=== PATIENT | female | born 1935 | race Caucasian/White ===

== ENCOUNTER 2016-05-02 14:43 | Emergency (ER) | payer MEDICARE, BC ==
[2015-11-10 07:19] VITALS: BMI 24.3
[~2016-05-02 14:43] MED LIST: BENADRYL50 MG PO; FLUTICASONE PRO16 GM NASAL; HYDROCODONE-APA1 TAB PO; LEVOTHYROXINE100 MCG PO; TRAZODONE HCL50 MG PO; TYLENOL W/CODEI1 TAB PO; VOLTAREN100 GM TOPICAL
[2016-05-02 15:41] LABS: BASOPHILS 0.5 % (0.0-2.0); EOSINOPHILS 1.7 % (0-7); HEMATOCRIT 33.2 % (36.0-48.0); HEMOGLOBIN 10.9 g/dL (12-16); IMMATURE GRANULOCYTES 0.2 % (0-5); LYMPHOCYTES 28.2 % (15-50); MCH 29.4 pg (26.0-34.0); MCHC 32.8 g/dL (31.0-37.0); MCV 89.5 fL (80.0-100.0); MEAN PLATELET VOLUME 9.3 fL (7.4-10.4); MONOCYTES 10.7 % (2-11); NEUTROPHILS 58.7 % (40-80); PLATELET COUNT 302 10x3/uL (130-400); RBC 3.71 10x6/uL (4.00-5.40); RDW 12.6 % (11.5-14.5); WBC 6.6 10x3/uL (4.8-10.8)
[2016-05-02 16:19] LABS: CALC OSMOLALITY 271 mosm/kg (275-300); CALCIUM 8.5 mg/dL (8.5-10.1); CARBON DIOXIDE 26.1 mmol/L (21.0-32.0); CHLORIDE - SERUM 103 mmol/L (98-107); CREATINE KINASE 161 UL (21-215); CREATININE - SERUM 0.7 mg/dL (0.6-1.3); GLUCOSE 81 mg/dL (74-106); POTASSIUM - SERUM 4.4 mmol/L (3.5-5.1); SODIUM 137 mmol/L (136-145); UREA NITROGEN 10 mg/dL (7-18); eGFR NON AFRICAN AMERICAN 86 mL/min (90-120)
[2016-05-02 16:20] LABS: TROPONIN-I < 0.017 ng/mL (0.000-0.060)
== END 2016-05-02 18:54 | disposition home or self-care (01) ==
LOC: D.ER 14:43
PROVIDERS: Nurse Practitioner Acute Care
DX: M54.12 Radiculopathy, cervical region (principal); I10 Essential (primary) hypertension; E03.9 Hypothyroidism, unspecified

== ENCOUNTER → 2018-03-12 09:33 | Outpatient (CLI) | payer MEDICARE, BC ==
[2015-11-10 07:19] VITALS: BMI 24.3
== END | disposition home or self-care (01) ==
LOC: D.HCCARDIO 03-06 12:30
DX: I20.9 Angina pectoris, unspecified (principal); R06.02 Shortness of breath

== ENCOUNTER 2018-03-27 06:25 | Outpatient (CLI) | payer MEDICARE, BC ==
[~2018-03-27] VITALS: Ht 160 cm; Wt 57.3 kg
--- NOTE | ~2018-03-27 | HEMODYNAMI ---
PATIENT:SEEMA BURGER MEDICAL RECORD: [id number] : 39 LOCATION:[facility] ADMISSION DATE: 03/27/18 Generatedon:03/27/20189:15 Patient name: SEEMA BURGER Patient #: [id number] SSN: : 1935 Date of study: 03/27/2018 Page: Of Hemodynamic Procedure Report Patient Data Patient Demographics Procedure consent was obtained First Name: SEEMA Gender: Female Last Name: TAO : 1935 Middle Initial: C Age: 82 year(s) Patient #: [id number] Race: Unknown Additional ID: [id number] Contact details Address: [place] [address] State: [place] City: [place] Zip code: [address] Past Medical History Allergies Allergen Reaction Date Comments Reported Other allergy 03/27/2018 SULFA, TRAMADOL Admission Admission Data Admission Date: 03/27/2018 Admission Time: 6:25 Procedure Procedure Types Cath Procedure Diagnostic Procedure LHC LHC w/Coronaries Peripheral Cath Diagnostic Procedure 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 Peripheral Procedures Kteks-Ylsdvis-Jdk-Off Procedure Description Procedure Date Procedure Date: 03/27/2018 Procedure Start Time: 9:00 Procedure End Time: 9:12 Procedure Staff Name Function Paul Leggett MD Performing Physician Zohreh Fox RT Monitor Jeanette Howard RT Scrub Brenton Troy RN Nurse Artur Paredes RT Patient Admitting Clerk Procedure Data Cath Procedure Fluoroscopy Diagnostic fluoroscopy Total fluoroscopy Time: 1.7 time: 1.7 min min Diagnostic fluoroscopy Total fluoroscopy dose: 334 dose: 334 mGy mGy Contrast Material Contrast Material Type Amount (ml) Isovue 300 100 Entry Location Entry Primary Successful Side Size Upsize Upsize Entry Closure Succes sful Closure Location (Fr) 1 (Fr) 2 (Fr) Remarks Device Remarks Femoral Right 5 Fr Exoseal artery Estimated blood loss: 5 ml Diagnostic catheters Device Type Used For End Catheter Placement MULTIPACK JL 4.0 5Fr Left Coronary catheter Angiography MULTIPACK 3DRC 5Fr Right Coronary catheter Angiography MULTIPACK Pigtail 5 Fr LV Angiography catheter Procedure Complications No complications Procedure Medications Medication Administration Route Dosage Oxygen etCO2 Nasal cannula 2 l/min Lidocaine 2% added to field 20 Heparin Flush Bag added to field 2 bags (1000units/500ml NS) 0.9% NaCl I.V. 100 ml/hr Versed I.V. 1 mg Fentanyl I.V. 50 mcg Versed I.V. 1 mg Fentanyl I.V. 50 mcg Versed I.V. 0.5 mg Fentanyl I.V. 25 mcg Hemodynamics Rest Heart Rate: 73 (bpm) Pressure Samples Time Site Value (mmHg) Purpose Heart Use Rate(bpm) 9:06 LV 116/-13,8 Snapshot 82 9:07 AO 105/52(77) Pullback 90 9:07 LV 95/-6,8 Pullback 90 Gradients Valve Time Site 1 Site 2 Mean SEP/DFP Peak To Heart Use (mmHg) (sec/min) Peak Rate (mmHg) (bpm) Aortic 9:07 LV AO 0 7 0 90 95/-6,8 105/52(77) Calculations Valve P-P Mean Valve Index Valve Source Name Gradient Area Flow (cm2) Aortic 0 0 0 0 Snapshots Pre Cath Intra NCS Post Cath Vital Signs Time Heart Resp SPO2 etCO2 NIBP (mmHg) Rhythm Pain Sedation Rate (ipm) (%) (mmHg) Status Level (bpm) 8:43:58 70 12 100 29 143/73(124) NSR 0 (11) 10(A) , No pain 8:48:10 74 11 100 33.4 128/72(112) NSR 0 (11) 10(A) , No pain 8:52:16 81 12 98 30 125/73(101) NSR 0 (11) 10(A) , No pain 8:56:24 77 13 98 0 111/67(101) NSR 0 (11) 10(A) , No pain 9:00:25 71 15 95 0 118/69(84) NSR 0 (11) 10(A) , No pain 9:04:33 80 13 93 0 115/61(94) NSR 0 (11) 9(A) , No pain 9:08:39 85 12 95 0 112/64(91) NSR 0 (11) 9(A) , No pain 9:12:41 78 13 98 20.8 125/69(101) NSR 0 (11) 10(A) , No pain Medications Time Medication Route Dose Verified Delivered Reason Notes Effe ctiveness by by 8:49:44 Oxygen etCO2 2 Buffie Buffie used for Nasal l/min Sydni Troy RN procedure cannula 8:49:51 Lidocaine 2% added 20ml Buffie Paul for local to vial Sydni Leggett MD anesthetic field 8:49:57 Heparin Flush added 2 Buffie Paul used for Bag to bags Sydni Leggett MD procedure (1000units/500ml field NS) 8:50:06 0.9% NaCl I.V. 100 Buffie Buffie Per ml/hr Sydni Troy RN physician 8:52:05 Versed I.V. 1 mg Buffie Buffie for Sydni Troy RN sedation 8:52:11 Fentanyl I.V. 50 Buffie Buffie for mcg Sydni RN Sydni RN sedation 9:01:49 Versed I.V. 1 mg Buffie Buffie for Sydni RN Sydni RN sedation 9:01:53 Fentanyl I.V. 50 Buffie Buffie for mcg Sydni RN Sydni RN sedation 9:07:11 Versed I.V. 0.5 Buffie Buffie for mg Sydni RN Sydni RN sedation 9:07:15 Fentanyl I.V. 25 Buffie Buffie for mcg Sydni RN Sydni RN sedation Procedure Log Time Note 8:11:55 Signed procedure consent form obtained from patient. 8:11:56 Diagnostic Cath status Elective 8:12:01 Time tracking: Regular hours (M-F 7:00 - 5:00) 8:12:05 Plan of Care:Hemodynamics will remain stable., Cardiac rhythm will remain stable., Comfort level will be maintained., Respiratory function will remain adequate., Patient/ family verbilizes understanding of procedure., Procedure tolerated without complication., Recovers from procedure without complications.. 8:16:15 Patient allergic to Other allergySULFA, TRAMADOL 8:26:55 Artur Paredes RT(R) sent for patient. Start room use. 8:34:03 Patient received from Pre/Post Procedure Room to CCL 2 Alert and oriented. Tansferred to table in Supine position. 8:34:04 Warm blankets applied, and genesis hugger turned on for patient comfort. 8:34:04 Correct patient and procedure confirmed by team. 8:34:05 ECG and BP/O2 sat monitors applied to patient. 8:42:46 Vital chart was started 8:42:47 Baseline sample Acquired. 8:42:52 Rhythm: sinus rhythm 8:42:54 Full Disclosure recording started 8:44:43 H&P Date Dictated: 03/27/2018 Within 30 days and on chart., H&P Addendum completed by physician on day of procedure. (MUST COMPLETE FOR ALL OUTPATIENTS). 8:44:48 Pre-procedure instructions explained to patient. 8:44:48 Pre-op teaching completed and patient verbalized understanding. 8:44:50 Family in patients room. 8:44:52 Patient NPO since Midnight. 8:44:53 Is the patient allergic to Iodine/contrast media? No. 8:44:54 Was the patient premedicated? No 8:44:55 Is patient on blood thinner?No 8:44:56 Patient diabetic? No. 8:44:59 Previous problem with sedation/anesthesia? No ? 8:45:01 Snore? Yes 8:45:02 Sleep apnea? Yes 8:45:03 Deviated septum? No 8:45:03 Opens mouth fully? Yes 8:45:04 Sticks out tongue? Yes 8:45:05 Airway obstruction? No ? 8:45:08 Dentures? No ? 8:45:11 Pre procedure: right dorsailis pedis pulse 1+ Palpable, but thready & weak; easily obliterated 8:45:24 Patient pain scale 0/10 ?. 8:45:34 IV patent on arrival in left forearm with 0.9% NaCl at KVO. 8:45:37 Lab results completed and on chart. 8:45:44 Bilateral groins area was prepped with chlora-prep and draped in sterile fashion 8:45:45 Alarms reviewed by R. N. 8:45:45 Sharps counted by scrub and verified by R.N. 8:45:48 Physician arrived 8:45:48 --------ALL STOP TIME OUT------ 8:45:49 Final Timeout: patient, procedure, and site verified with staff and physician. All members of the team are in agreement. 8:45:51 Bilateral groins site verified by team. 8:45:54 Physical assessment completed. ASA score P 2 - A patient with mild systemic disease as per Paul Leggett MD. 8:45:57 Sedation plan: IV Moderate Sedation Medication:Versed, Fentanyl 8:46:00 Use device set Femoral Dx 8:46:01 ACIST Syringe (11784) opened to sterile field. 8:46:02 Bag Decanter (2002S) opened to sterile field. 8:46:02 Medline Cath Pack ([id number]) opened to sterile field. 8:46:03 DIAGNOSTIC WIRE .035 260cm J wire (246655) opened to sterile field. 8:46:04 ACIST Hand Control (74217) opened to sterile field. 8:46:04 ACIST Manifold (15628) opened to sterile field. 8:46:05 DIAGNOSTIC Multipack 5Fr catheter set ([id number]) opened to sterile field. 8:46:05 Tegaderm 4 x 4 (1626W) opened to sterile field. 8:46:06 SHEATH 5FR [place] (IJB995) opened to sterile field. 8:47:56 Zero performed for pressure channel P1 8:48:01 Zero performed for pressure channel P1 8:48:06 Zero performed for pressure channel P1 8:49:44 Oxygen 2 l/min etCO2 Nasal cannula was administered by Brenton Troy RN; used for procedure; 8:49:51 Lidocaine 2% 20ml vial added to field was administered by Paul Leggett MD; for local anesthetic; 8:49:57 Heparin Flush Bag (1000units/500ml NS) 2 bags added to field was administered by Paul Leggett MD; used for procedure; 8:50:06 0.9% NaCl 100 ml/hr I.V. was administered by Brenton Troy RN; Per physician; 8:52:05 Versed 1 mg I.V. was administered by Brenton Troy RN; for sedation; 8:52:11 Fentanyl 50 mcg I.V. was administered by Brenton Troy RN; for sedation; 9:00:33 Procedure started. 9:00:37 Local anesthetic to right femoral artery with Lidocaine 2% by Paul Leggett MD.INITIAL ACCESS ONLY 9:01:44 A 5 Fr sheath was inserted into the Right Femoral artery 9:01:49 Versed 1 mg I.V. was administered by Brenton Troy RN; for sedation; 9:01:53 Fentanyl 50 mcg I.V. was administered by Brenton Troy RN; for sedation; 9:02:11 A MULTIPACK JL 4.0 5Fr catheter was advanced over the wire and used for Left Coronary Angiography. 9:02:29 LCA angiography performed. 9::52 Injector settings: Ml/sec: 3, Volume: 6, 9:04:02 Catheter removed. 9:04:06 A MULTIPACK 3DRC 5Fr catheter was advanced over the wire and used for Right Coronary Angiography. 9:05:08 RCA angiography performed. 9:05:11 Injector settings: Ml/sec: 3, Volume: 6, 9:05:42 Catheter removed. 9:05:47 A MULTIPACK Pigtail 5 Fr catheter was advanced over the wire and used for LV Angiography. 9:06:56 LV hemodynamics recorded. 9::58 LV gram done using ANDERS 9:07:01 Injector settings: Ml/sec: 5, Volume: 15, 9:07:11 Versed 0.5 mg I.V. was administered by Brenton Troy RN; for sedation; 9:07:15 Fentanyl 25 mcg I.V. was administered by Brenton Troy RN; for sedation; 9:07:36 EF : 60 % 9:09:02 Abdominal angiogram w/ runoff was performed. 9::29 Injector settings: Ml/sec: 10, Volume: 20, 9:10:38 Catheter removed. 9:10:51 EXOSEAL 5Fr (EX500) opened to sterile field. 9:11:01 Sheath removed intact; hemostasis achieved with Exoseal to the Right Femoral artery. 9:11:05 Procedure ended.(Physican Out) 9:11:27 Fluoroscopy time 01.70 minutes. 9:11:30 Fluoroscopy dose: 334 mGy 9:11:30 Flurop Dose total: 334 9:11:35 Contrast amount:Isovue 300 100ml. 9:11:37 Sharps counted by scrub and verified by R.N. 9:11:38 Insertion/operative site no bleeding no hematoma. 9:11:40 Post-op/insertion site Right Femoral artery dressed using a 4 x 4 and Tegaderm. 9:11:43 Post right femoral artery:stable 9:11:44 Post Procedure Pulses reassessed and unchanged 9:11:47 Post procedure rhythm: unchanged. 9:11:50 Estimated blood loss: 5 ml 9:11:51 Post procedure instruction explained to patient.Patient verbalizes understanding. 9:11:51 Patient needs reinforcement of post procedure teaching. 9:12:04 Procedure and supply charges have been captured, reviewed, submitted and are correct. 9:12:08 Procedure Complication : No complications 9:12:10 Vital chart was stopped 9:12:11 See physician's report for complete and final results. 9:12:13 Report given to Pre/Post Procedure Room. 9:12:16 Patient transfered to Pre/Post Procedure Room with Stretcher. 9:12:18 Procedure ended. 9:12:18 Full Disclosure recording stopped 9:12:24 End room use (Document Last) Device Usage Item Name Manufacture Quantity Catalog Hospital Part Current Minimal L ot# / Number Charge Number Stock Stock Serial# Code ACIST Acist 1 06344 476970 258925 050321 20 Syringe Medical (30871) Systems Inc Bag Microtek 1 2001S 240950 14353 331769 5 Decanter Medical Inc. () Medline Medline 1 [id number] 232619 20037 836310 5 Cath Pack ([id number]) DIAGNOSTIC [facility] [place] 1 134018 050911 581107 185562 30 WIRE .035 260cm J wire (662881) ACIST Hand Acist 1 38273 166215 775340 687907 5 Control Medical (66093) Systems Inc ACIST Acist 1 25494 788477 485810 066063 5 Manifold Medical (12088) Systems Inc DIAGNOSTIC Cardinal 1 [id number] 538082 36679 385631 30 Multipack Health 5Fr catheter set (OD6077) Tegaderm 4 3M 1 1626W 495031 068051 901206 5 x 4 (1626W) SHEATH 5FR Terumo 1 [id number] 843880 769847 275326 5 [place] (SVR787) MULTIPACK Cardinal 1 316893 5 JL 4.0 5Fr Health catheter MULTIPACK Cardinal 1 818154 5 3DRC 5Fr Health catheter MULTIPACK Cardinal 1 731304 5 Pigtail 5 Health Fr catheter EXOSEAL 5Fr Cardinal 1 EX500 898585 956593 181907 10 (EX500) Health Signature Audit [place] Stage Time Signature Unsigned Intra-Procedure 03/27/2018 Zohreh Fox 9:15:14 AM RT(R) Signatures Monitor : Zohreh Fox RT Signature : Date : Time : [address] [place] [address]
[2018-03-27] MEDS ORDERED: NORVASC5 MG PO (06:51)
[2018-03-27 06:57] VITALS: BP 164/75; Ht 160 cm; Wt 57.3 kg
[2018-03-27 07:14] LABS: BASOPHILS 0.4 % (0-2); EOSINOPHILS 2.9 % (0-7); HEMATOCRIT 29.7 % (36.0-48.0); HEMOGLOBIN 9.5 g/dL (12-16); IMMATURE GRANULOCYTES 0.2 % (0-5); LYMPHOCYTES 35.1 % (15-50); MCH 26.5 pg (26.0-34.0); MCV 82.7 fL (80.0-100.0); MEAN PLATELET VOLUME 8.7 fL (7.4-10.4); MONOCYTES 13.9 % (2-11); NEUTROPHILS 47.5 % (40-80); PLATELET COUNT 305 10x3/uL (130-400); RBC 3.59 10x6/uL (4.00-5.40); RDW 14.6 % (11.5-14.5); WBC 4.5 10x3/uL (4.8-10.8)
[2018-03-27 07:41] LABS: ANION GAP 16.4 mmol/L (8-16); CALCIUM 8.6 mg/dL (8.5-10.1); CARBON DIOXIDE 21.1 mmol/L (21.0-32.0); CREATININE - SERUM 0.8 mg/dL (0.6-1.3); POTASSIUM - SERUM 3.5 mmol/L (3.5-5.1)
--- NOTE | 2018-03-27 09:35 | NUR ---
RIGHT GROIN DRESSING C/D/I. NO S/S OF HEMATOMA NOTED. PT ON BEDPAN. VOIDED APPROX 700CC OF CLEAR YELLOW URINE WITHOUT DIFFICULTY. ARELIS-CARE GIVEN AND PT BACK IN SUPINE POSITION. CALL LIGHT WITHIN REACH. FAMILY AT BEDSIDE.
--- NOTE | 2018-03-27 10:20 | NUR ---
RIGHT GROIN DRESSING C/D/I. NO S/S OF HEMATOMA NOTED. VSS. HEAD OF BED INC TO 30 DEGREES. TOLERATED WELL. SET UP WITH SANDWICH TRAY.
--- NOTE | 2018-03-27 10:45 | NUR ---
PT TOLERATED SANDWICH TRAY WELL. DENIES NAUSEA. VSS. RIGHT GROIN DRESSING C/D/I.
--- NOTE | 2018-03-27 11:11 | NUR ---
LEFT A/C PIV D/C'D WITH CATH TIP INTACT. PT TOLERATED WELL. PT INSTRUCTED TO GET UP AND GET DRESSED. WAITING TO SPEAK WITH DR. GIVENS PRIOR TO DISCHARGE HOME.
--- NOTE | 2018-03-27 11:30 | NUR ---
DISCUSSED DISCHARGE INSTRUCTIONS WITH PT AND PT'S FAMILY. THEY VOICED UNDERSTANDING. RIGHT GROIN DRESSING C/D/I. NO S/S OF HEMATOMA NOTED. ALL BELONGINGS AND PAPERWORK IN HAND. PT TAKEN OUT BY VEHICLE. NO S/S OF DISTRESS NOTED.
== END 2018-03-27 11:30 | disposition home or self-care (01) ==
LOC: D.CATH 06:25
PROVIDERS: Internal Medicine Cardiovascular Disease
DX: I25.119 Atherosclerotic heart disease of native coronary artery with unspecified angina pectoris (principal); M79.606 Pain in leg, unspecified; R94.39 Abnormal result of other cardiovascular function study; I10 Essential (primary) hypertension; M19.90 Unspecified osteoarthritis, unspecified site; Z82.49 Family history of ischemic heart disease and other diseases of the circulatory system; E07.9 Disorder of thyroid, unspecified; Z79.891 Long term (current) use of opiate analgesic; Z79.899 Other long term (current) drug therapy; Z88.5 Allergy status to narcotic agent; Z88.2 Allergy status to sulfonamides; Z01.812 Encounter for preprocedural laboratory examination

== ENCOUNTER 2018-04-14 11:23 | Outpatient (CLI) | payer MEDICARE, BC ==
[~2018-04-14] VITALS: Ht 160 cm; Wt 56.8 kg
--- NOTE | ~2018-04-14 | HEMODYNAMI ---
PATIENT:SEEMA BURGER MEDICAL RECORD: [id number] : 39 LOCATION:[facility] ADMISSION DATE: 04/14/18 Generatedon:04/14/201814:31 Patient name: SEEMA BURGER Patient #: [id number] SSN: : 1935 Date of study: 04/14/2018 Page: Of Hemodynamic Procedure Report Patient Data Patient Demographics Procedure consent was obtained First Name: SEEMA Gender: Female Last Name: TAO : 1935 Middle Initial: C Age: 82 year(s) Patient #: [id number] Race: Unknown Additional ID: [id number] Contact details Address: [place] [address] State: [place] City: [place] Zip code: [address] Past Medical History Allergies Allergen Reaction Date Comments Reported Other allergy 03/27/2018 SULFA, TRAMADOL Other allergy 04/14/2018 Tramadol, Sulfa Admission Admission Data Admission Date: 04/14/2018 Admission Time: 11:23 Procedure Procedure Types Cath Procedure Diagnostic Procedure Sedation Charges Moderate Sedation up to 15 minutes PCI Procedure Coronary Stent Coronary Stent Initial Procedure Description Procedure Date Procedure Date: 04/14/2018 Procedure Start Time: 14:10 Procedure End Time: 14:29 Procedure Staff Name Function Paul Leggett MD Performing Physician Kumar Houser RT Monitor Jacquelin Braxton RN Nurse Beth Harvey RT Scrub Dalton Marquez RN Senior Materials Scientist Procedure Data Cath Procedure Fluoroscopy Diagnostic fluoroscopy Total fluoroscopy Time: 4.1 time: 4.1 min min Diagnostic fluoroscopy Total fluoroscopy dose: 237 dose: 237 mGy mGy Contrast Material Contrast Material Type Amount (ml) Isovue 300 47 Entry Location Entry Primary Successful Side Size Upsize Upsize Entry Closure [place] ccessful Closure Location (Fr) 1 (Fr) 2 (Fr) Remarks Device Remarks Radial Right 6 Fr Mechanical artery Short Compression Estimated blood loss: 10 ml Procedure Complications No complications Procedure Medications Medication Administration Route Dosage 0.9% NaCl I.V. 100 ml/hr Oxygen etCO2 Nasal cannula 2 l/min Lidocaine 2% added to field 20 Heparin Flush Bag added to field 2 bags (1000units/500ml NS) Radial Cocktail added to field 1 syringe (Verapomil 2mg/Nitro 400mcg/Heparin 1500units) Versed I.V. 2 mg Fentanyl I.V. 50 mcg Versed I.V. 2 mg Fentanyl I.V. 50 mcg Heparin Bolus I.V. 5000 units Plavix P.O. 600 mg Hemodynamics Rest Heart Rate: 67 (bpm) Snapshots Pre Cath Intra NCS Post Cath Vital Signs Time Heart Resp SPO2 etCO2 NIBP (mmHg) Rhythm Pain Sedation Rate (ipm) (%) (mmHg) Status Level (bpm) 13:53:47 73 16 99 31.4 148/76(115) NSR 0 (11) 10(A) , No pain 13:58:08 71 15 100 31.3 155/77(122) NSR 0 (11) 10(A) , No pain 14:02:28 71 10 98 26.4 129/71(108) NSR 0 (11) 10(A) , No pain 14:06:42 70 12 98 31.3 118/72(99) NSR 0 (11) 10(A) , No pain 14:10:56 73 13 97 32.1 86/51(68) NSR 0 (11) 10(A) , No pain 14:14:57 79 14 98 27.6 87/56(77) NSR 0 (11) 9(A) , No pain 14:18:59 80 16 98 21.6 98/56(77) NSR 0 (11) 9(A) , No pain 14:23:05 80 9 97 23.9 99/59(80) NSR 0 (11) 10(A) , No pain 14:27:11 77 9 96 29.8 107/58(89) NSR 0 (11) 10(A) , No pain Medications Time Medication Route Dose Verified Delivered Reason Not es Effectiveness by by 13:54:17 0.9% NaCl I.V. 100 Paul Jacquelin used for ml/hr Oleksandr Braxton tablet tester 13:54:24 Oxygen etCO2 2 l/min Paul Jacquelin used for Nasal Oleksandr Braxton procedure cannula RN 13:54:31 Lidocaine 2% added 20ml Paul Paul for local to vial Oleksandr Leggett MD anesthetic field 13:54:36 Heparin Flush added 2 bags Paul Paul used for Bag to Oleksandr Leggett MD procedure (1000units/500ml field NS) 13:54:41 Radial Cocktail added 1 Paul Paul used for (Verapomil to syringe Oleksandr Leggett MD procedure 2mg/Nitro field 400mcg/Heparin 1500units) 14:06:39 Versed I.V. 2 mg Paul Jacquelin for sedation Oleksandr Braxton RN 14:06:52 Fentanyl I.V. 50 mcg Paul Jacquelin for sedation Oleksandr Braxton RN 14:11:12 Versed I.V. 2 mg Paul Jacquelin for sedation Oleksandr Braxton RN 14:11:16 Fentanyl I.V. 50 mcg Paul Jacquelin for sedation Oleksandr Braxton RN 14:12:20 Heparin Bolus I.V. 5000 Paul Jacquelin for jimena ified units Oleksandr Braxton anticoagulation with Dr. WALT Leggett 14:22:22 Plavix P.O. 600 mg Paul Jacquelin for Oleksandr Braxton antiplatelet RN therapy Procedure Log Time Note 13:39:30 Time tracking: Regular hours (M-F 7:00 - 5:00) 13:39:33 Plan of Care:Hemodynamics will remain stable., Cardiac rhythm will remain stable., Comfort level will be maintained., Respiratory function will remain adequate., Patient/ family verbilizes understanding of procedure., Procedure tolerated without complication., Recovers from procedure without complications.. 13:39:36 Dalton Maqruez RN sent for patient. Start room use. 13:48:02 Patient received from Pre/Post Procedure Room to CCL 1 Alert and oriented. Tansferred to table in Supine position. 13:48:03 Warm blankets applied, and genesis hugger turned on for patient comfort. 13:48:03 Correct patient and procedure confirmed by team. 13:48:05 Signed procedure consent form obtained from patient. 13:48:06 ECG and BP/O2 sat monitors applied to patient. 13:48:22 H&P Date Dictated: 03/27/2019 Within 30 days and on chart., H&P Addendum completed by physician on day of procedure. (MUST COMPLETE FOR ALL OUTPATIENTS). 13:48:24 Pre-procedure instructions explained to patient. 13:48:25 Pre-op teaching completed and patient verbalized understanding. 13:48:26 Family in waiting room. 13:48:27 Patient NPO since Midnight. 13:48:30 Previous problem with sedation/anesthesia? No ? 13:48:30 Snore? Yes 13:48:31 Sleep apnea? Yes 13:48:32 Deviated septum? No 13:48:33 Opens mouth fully? Yes 13:48:33 Sticks out tongue? Yes 13:48:35 Airway obstruction? No ? 13:48:40 Dentures? No ? 13:48:42 Pre procedure: right dorsailis pedis pulse 2+ Normal; easily identifiable; not easily obliterated 13:48:44 Patient pain scale 0/10 ?. 13:48:45 Modified Leroy's test Ulnar < 7 seconds 13:48:50 IV patent on arrival in left wrist with 0.9% NaCl at [facility]. 13:48:52 Lab results completed and on chart. 13:52:37 Vital chart was started 13:54:17 0.9% NaCl 100 ml/hr I.V. was administered by Jacquelin Braxton RN; used for procedure; 13:54:24 Oxygen 2 l/min etCO2 Nasal cannula was administered by Jacquelin Braxton RN; used for procedure; 13:54:31 Lidocaine 2% 20ml vial added to field was administered by Paul Leggett MD; for local anesthetic; 13:54:36 Heparin Flush Bag (1000units/500ml NS) 2 bags added to field was administered by Paul Leggett MD; used for procedure; 13:54:41 Radial Cocktail (Verapomil 2mg/Nitro 400mcg/Heparin 1500units) 1 syringe added to field was administered by Paul Leggett MD; used for procedure; 14:04:49 Baseline sample Acquired. 14:04:52 Rhythm: sinus rhythm 14:04:54 Full Disclosure recording started 14:05:22 Patient allergic to Other allergyTramadol, Sulfa 14:05:26 Is the patient allergic to Iodine/contrast media? No. 14:05:27 Is patient on blood thinner?No 14:05:28 Patient diabetic? No. 14:05:37 Right Radial & Right Groin area was prepped with chlora-prep and draped in sterile fashion 14:05:38 Alarms reviewed by Danyel N. 14:05:39 Sharps counted by scrub and verified by R.N. 14:05:42 Use device set Radial Dx or PCI 14:05:43 ACIST Syringe (03460) opened to sterile field. 14:05:43 Medline Cath Pack ([id number]) opened to sterile field. 14:05:44 Bag Decanter (2002S) opened to sterile field. 14:05:44 ACIST Manifold (97975) opened to sterile field. 14:05:45 ACIST Hand Control (76703) opened to sterile field. 14:05:45 Tegaderm 4 x 4 (1626W) opened to sterile field. 14:05:46 MBrace Wrist Support ([id number]) opened to sterile field. 14:05:47 SHEATH 6FR Slender (50-5150) opened to sterile field. 14:05:47 DIAGNOSTIC WIRE .035 260cm J wire (167501) opened to sterile field. 14:05:53 Physician arrived 14:05:53 --------ALL STOP TIME OUT------ 14:05:53 Final Timeout: patient, procedure, and site verified with staff and physician. All members of the team are in agreement. 14:05:56 Right Radial & Right Groin site verified by team. 14:05:58 Physical assessment completed. ASA score P 2 - A patient with mild systemic disease as per Paul Leggett MD. 14:06:02 Sedation plan: IV Moderate Sedation Medication:Versed, Fentanyl 14:06:39 Versed 2 mg I.V. was administered by Jacquelin Braxton RN; for sedation; 14:06:52 Fentanyl 50 mcg I.V. was administered by Jacquelin Braxton RN; for sedation; 14:09:59 Procedure started. 14:10:04 Local anesthetic to right radial artery with Lidocaine 2% by Paul Leggett MD.INITIAL ACCESS ONLY 14:10:11 A 6 Fr Short sheath was inserted into the Right Radial artery 14:10:31 Zero performed for pressure channel P1 14:10:35 Zero performed for pressure channel P1 14:10:37 Zero performed for pressure channel P1 14:10:40 Zero performed for pressure channel P1 14:10:52 NEEDLE Cook 21G 4cm Radial (T67815) opened to sterile field. 14:11:06 Zero performed for pressure channel P1 14:11:12 Versed 2 mg I.V. was administered by Jacquelin Braxton RN; for sedation; 14:11:12 Zero performed for pressure channel P1 14:11:16 Fentanyl 50 mcg I.V. was administered by Jacquelin Braxton RN; for sedation; 14:11:33 Zero performed for pressure channel P1 14:11:47 GUIDE 6FR XBLAD 3.5 catheter ([id number]) opened to sterile field. 14:12:02 6 Fr XBLAD 3.5 guide catheter was inserted over the wire 14:12:20 Heparin Bolus 5000 units I.V. was administered by Jacquelin Braxton RN; for anticoagulation; verified with Dr. Leggett 14:12:22 TUBING High Pressure Extension Tubing (Oleksandr) (TC8858L) opened to sterile field. 14:12:23 INFLATOR Merit BasixCompak (IC3846) opened to sterile field. 14:12:24 BMW 300cm [place] 2 J wire ([id number]) opened to sterile field. 14:12:28 TR BAND Standard (TSX84TYG) opened to sterile field. 14:13:00 BMW wire advanced. 14:15:05 Wire advanced across lesion. 14:16:49 Inflate balloon Inflation number: 2 A EMERGE OTW 2.0 x 20 balloon ([id number]) was prepped and advanced across the Prox CX, then inflated to 10 LAURI for 0:10 (min:sec). 14:17:12 Balloon removed over the wire. 14:19:45 Place stent Inflation Number: 1 A INTEGRITY OTW 2.5 X 18 stent ([id number]) was prepped and advanced across the Prox CX. The stent was deployed at 14 LAURI for 0:10 (min:sec). 14:20:36 Stent catheter was removed intact over wire. 14:20:37 Wire removed. 14:20:37 Guide catheter removed. 14:20:45 Sheath removed intact; hemostasis achieved with Mechanical Compression to the Right Radial artery. 14:20:47 Procedure ended.(Physican Out) 14:22:22 Plavix 600 mg P.O. was administered by Jacquelin Braxton RN; for antiplatelet therapy; 14:22:35 Fluoroscopy time 04.10 minutes. 14::42 Flurop Dose total: 237 14:22:42 Fluoroscopy dose: 237 mGy 14:22:46 Contrast amount:Isovue 300 47ml. 14:22:48 Sharps counted by scrub and verified by R.N. 14:22:53 TR band inflated with 14cc of air. 14:22:54 Insertion/operative site no bleeding no hematoma. 14:23:41 Post right radial artery:stable, soft, clean and dry 14:23:42 Post Procedure Pulses reassessed and unchanged 14:23:45 Post-procedure physical assessment completed. ASA score P 2 - A patient with mild systemic disease as per Paul Leggett MD. 14:23:48 Post procedure rhythm: unchanged. 14:24:34 Estimated blood loss: 10 ml 14:24:35 Post procedure instruction explained to patient.Patient verbalizes understanding. 14:24:36 Patient needs reinforcement of post procedure teaching. 14:24:49 Procedure type changed to Cath procedure, Diagnostic procedure, Sedation Charges, Moderate Sedation up to 15 minutes, PCI procedure, Coronary Stent, Coronary Stent Initial 14:29:28 Procedure and supply charges have been captured, reviewed, submitted and are correct. 14:29:30 Procedure Complication : No complications 14:29:33 Vital chart was stopped 14:29:34 See physician's report for complete and final results. 14:29:35 Report given to Pre/Post Procedure Room. 14:29:37 Patient transfered to Pre/Post Procedure Room with Stretcher. 14:29:38 Procedure ended. 14:29:38 Full Disclosure recording stopped 14:29:42 End room use (Document Last) Intervention Summary Intervention Notes Time ActionType Lesion and Equipment Action# Pressure Duration Attributes Used 14:16:49 Inflate Prox CX EMERGE OTW 2 10 00:10 balloon 2.0 x 20 balloon ([id number]) 14:19:45 Place stent Prox CX INTEGRITY 1 14 00:10 OTW 2.5 X 18 stent ([id number]) Device Usage Item Name Manufacture Quantity Catalog Number Hospital Part Current Min imal Lot# / Charge Number Stock Stock Serial# Code ACIST Acist 1 75338 867767 946709 269316 20 Syringe [employer] (74135) Krush Inc Medline Cath Medline 1 [id number] 075068 97636 892659 5 Pack ([id number]) Bag Decanter Microtek 1 171108 66468 660818 5 (2002S) Medical Inc. ACIST Acist 1 13693 241050 899724 462856 5 Manifold Medical (05569) Systems Inc ACIST Hand Acist 1 41674 937469 091962 837132 5 Control Medical (60911) Systems Inc Tegaderm 4 x 3M 1 1626W 746046 834031 286899 5 4 (1626W) MBrace Wrist Advanced 1 140-0250-00 247002 32552 578750 5 Support Vascular ([id number]) Dynamics SHEATH 6FR Terumo 1 [id number] 134487 182416 683872 5 Slender (80-1060) DIAGNOSTIC [place] 1 928147 504693 915159 581714 30 WIRE .035 260cm J wire (754975) GUIDE 6FR Cardinal 1 [id number] 436846 771360 574018 10 XBLAD 3.5 Health catheter (62321424) TUBING High Merit 1 [id number] 357460 71169 381913 10 Pressure Medical Extension Tubing (Leggett) (TZ5073L) INFLATOR Merit 1 QF4489 358195 577571 196701 15 Merit Medical BasixCompak (JY6431) BMW 300cm Stanley 1 [id number] 559519 584049 412627 5 [place] 2 Vascular J wire (2393233X) TR BAND Terumo 1 BYR68-TZY 014360 547717 365289 40 Standard ([id number]) INTEGRITY Medtronic 1 [id number] 055703 891925 8 [id number] OTW 2.5 X 18 stent ([id number]) EMERGE OTW [place] 1 [id number] 753851 504335 304845 5 2.0 x 20 Scientific balloon ([id number]) NEEDLE Eastbeam Medical 1 [id number] 007076 138086 056613 5 21G 4cm Radial (S04574) Signature Audit [place] Stage Time Signature Unsigned Intra-Procedure 04/14/2018 Kumar Houser 2:31:38 PM RT(R) Signatures Monitor : Kumar Houser RT Signature : Date : Time : [facility] [address] [place] [address]
[~2018-04-14 11:23] MED LIST changes: +NORVASC5 MG PO
[2018-04-14 12:00] VITALS: BP 129/65; Ht 160 cm; Wt 56.8 kg
[2018-04-14 12:17] LABS: BASOPHILS 0.4 % (0-2); EOSINOPHILS 1.2 % (0-7); HEMATOCRIT 30.2 % (36.0-48.0); HEMOGLOBIN 9.5 g/dL (12-16); IMMATURE GRANULOCYTES 0.1 % (0-5); LYMPHOCYTES 23.2 % (15-50); MCH 26.2 pg (26.0-34.0); MCHC 31.5 g/dL (31.0-37.0); MCV 83.4 fL (80.0-100.0); MEAN PLATELET VOLUME 9.3 fL (7.4-10.4); MONOCYTES 10.2 % (2-11); NEUTROPHILS 64.9 % (40-80); PLATELET COUNT 345 10x3/uL (130-400); RBC 3.62 10x6/uL (4.00-5.40); RDW 14.1 % (11.5-14.5); WBC 6.7 10x3/uL (4.8-10.8)
[2018-04-14 12:31] LABS: ANION GAP 16.2 mmol/L (8-16); CALCIUM 8.7 mg/dL (8.5-10.1); CARBON DIOXIDE 22.8 mmol/L (21.0-32.0); CREATININE - SERUM 0.9 mg/dL (0.6-1.3)
[2018-04-14] MEDS ORDERED: BAYER CHEWABLE81 MG PO (14:38)
[2018-04-14] MEDS ORDERED: PLAVIX75 MG PO (14:38)
--- NOTE | 2018-04-14 14:45 | NUR ---
HOB UP 30 DEGREES FOR COMFORT. TR BAND REMAINS CDI WITH PATIENT VERBALIZING NO PAIN OR NEEDS. FAMILY IS AT BEDSIDE
--- NOTE | 2018-04-14 14:46 | NUR ---
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 DR GIVENS PRESENT AT BEDSIDE TALKING TO FAMILY
--- NOTE | 2018-04-14 14:52 | NUR ---
RESTING QUIETLY WITH VSS NO DISTRESS NOTED. TR BAND TO R/WRIST IS CDI CALL LIGHT IN REACH
--- NOTE | 2018-04-14 15:12 | NUR ---
TR BAND REMAINS CDI WITH NO BLEEDING OR HEMATOMA NOTED. FAMILY IS PRESENT AT BEDSIDE. PATIENT TOLERATING A SANDWICH AND SODA WITH NAUSEA DENIED
--- NOTE | 2018-04-14 15:46 | NUR ---
VISITING WITH FAMILY PRESENT IN ROOM NO DISTRESS VSS AND TR BAND REMAINS CDI
--- NOTE | 2018-04-14 16:08 | NUR ---
PATIENT UP TO BATHROOM WITH ASSIST NO DISTRESS NOTED. TR BAND REMAINS CDI NO BLEEDING
--- NOTE | 2018-04-14 16:44 | NUR ---
TR BAND REMAINS CDI WITH NO BLEEDING OR HEMATOMA NOTED. CALL LIGHT IN REACH
--- NOTE | 2018-04-14 16:55 | NUR ---
2 CC AIR REMOVED FROM TR BAND WITH NO BLEEDING OR HEMATOMA NOTED.
--- NOTE | 2018-04-14 17:11 | NUR ---
4 CC AIR REMOVED FROM TR BAND WITH NO BLEEDING OR HEMATOMA NOTED.
--- NOTE | 2018-04-14 17:33 | NUR ---
4 CC AIR REMOVED FROM TR BAND WITH NO BLEEDING OR HEMATOMA NOTED.
--- NOTE | 2018-04-14 17:57 | NUR ---
4 CC AIR REMOVED FROM TR BAND WITH NO BLEEDING OR HEMATOMA. PIV REMOVED WITH DRESSING APPLIED. VERBAL AND WRITTEN DISCHARGE GONE OVER WITH PATIENT AND FAMILY. CHEST PAIN IS DENIED PATIENT GETS DRESSED FOR DISCHARGE HOME
--- NOTE | 2018-04-14 18:07 | NUR ---
PATIENT LEFT VIA WC TO PARKING FOR TRANSPORT HOME NO DISTRESS DRESSING TO R/WRIST CDI
== END 2018-04-14 18:08 | disposition home or self-care (01) ==
LOC: D.CATH 11:23
PROVIDERS: Internal Medicine Cardiovascular Disease
DX: I25.110 Atherosclerotic heart disease of native coronary artery with unstable angina pectoris (principal)

== ENCOUNTER 2018-06-03 11:37 | Outpatient (CLI) | payer MEDICARE, BC ==
[~2018-06-03] VITALS: Ht 160 cm; Wt 57.3 kg
--- NOTE | ~2018-06-03 | HEMODYNAMI ---
PATIENT:SEEMA BURGER MEDICAL RECORD: [id number] : 39 LOCATION:[facility] ADMISSION DATE: 06/03/18 Generatedon:06/03/201815:25 Patient name: SEEMA BURGER Patient #: [id number] SSN: : 1935 Date of study: 06/03/2018 Page: Of Hemodynamic Procedure Report Patient Data Patient Demographics Procedure consent was obtained First Name: SEEMA Gender: Female Last Name: TAO : 1935 Middle Initial: C Age: 82 year(s) Patient #: [id number] Race: Unknown Additional ID: [id number] Contact details Address: [place] [address] State: [place] City: [place] Zip code: [address] Past Medical History Allergies Allergen Reaction Date Comments Reported Other allergy 03/27/2018 SULFA, TRAMADOL Other allergy 04/14/2018 Tramadol, Sulfa Admission Admission Data Admission Date: 06/03/2018 Admission Time: 11:37 Procedure Procedure Types Cath Procedure Diagnostic Procedure C [facility] w/Coronaries Sedation Charges Moderate Sedation up to 15 minutes PCI Procedure Coronary Stent Coronary Stent Initial Procedure Description Procedure Date Procedure Date: 06/03/2018 Procedure Start Time: 14:59 Procedure End Time: 15:21 Procedure Staff Name Function Paul Dangelo MD Performing Physician Zohreh Fox RT Monitor Mary Ramos RT Scrub Marcelino James RN Nurse Procedure Data Cath Procedure Fluoroscopy Diagnostic fluoroscopy Total fluoroscopy Time: 4.8 time: 4.8 min min Diagnostic fluoroscopy Total fluoroscopy dose: 577 dose: 577 mGy mGy Contrast Material Contrast Material Type Amount (ml) Isovue 300 74 Entry Location Entry Primary Successful Side Size Upsize Upsize Entry Closure [place] ccessful Closure Location (Fr) 1 (Fr) 2 (Fr) Remarks Device Remarks Radial Right 6 Fr Mechanical artery Short Compression Estimated blood loss: 5 ml Diagnostic catheters Device Type Used For End Catheter Placement DIAGNOSTIC [place] 110cm 5 Multi-vessel Fr catheter ([id number]) Angiography Procedure Complications No complications Procedure Medications Medication Administration Route Dosage 0.9% NaCl I.V. 100 ml/hr Oxygen etCO2 Nasal cannula 2 l/min Heparin Flush Bag added to field 2 bags (1000units/500ml NS) Lidocaine 2% added to field 20 Radial Cocktail added to field 1 syringe (Verapomil 2mg/Nitro 400mcg/Heparin 1500units) Versed I.V. 1 mg Fentanyl I.V. 50 mcg Versed I.V. 1 mg Fentanyl I.V. 50 mcg Radial Cocktail I.A. 1 syringe (Verapomil 2mg/Nitro 400mcg/Heparin 1500units) Heparin Bolus I.V. 5700 units Plavix P.O. 600 mg Hemodynamics Rest Heart Rate: 63 (bpm) Pressure Samples Time Site Value (mmHg) Purpose Heart Use Rate(bpm) 15:02 LV 32/-1,-2 Snapshot 66 15:03 AO 91/47(66) Pullback 70 15:03 LV 99/1,9 Pullback 70 Gradients Valve Time Site 1 Site 2 Mean SEP/DFP Peak To Heart Use (mmHg) (sec/min) Peak Rate (mmHg) (bpm) Aortic 15:03 LV AO 10 18 8 70 99/1,9 91/47(66) Calculations Valve P-P Mean Valve Index Valve Source Name Gradient Area Flow (cm2) Aortic 8 10 8 10 Snapshots Pre Cath Intra NCS Post Cath Vital Signs Time Heart Resp SPO2 etCO2 NIBP (mmHg) Rhythm Pain Sedation Rate (ipm) (%) (mmHg) Status Level (bpm) 14:21:09 63 15 98 0 170/86(136) NSR 0 (11) 10(A) , No pain 14:25:27 61 18 100 31.7 168/82(142) NSR 0 (11) 10(A) , No pain 14:29:45 64 23 100 38.5 157/80(125) NSR 0 (11) 10(A) , No pain 14:34:01 59 11 100 33.2 151/76(127) NSR 0 (11) 10(A) , No pain 14:38:15 61 22 99 15.8 153/76(121) NSR 0 (11) 10(A) , No pain 14:42:29 59 15 99 35.4 155/79(128) NSR 0 (11) 10(A) , No pain 14:46:43 60 14 98 35.4 151/77(120) NSR 0 (11) 10(A) , No pain 14:50:57 60 15 98 18.8 146/74(118) NSR 0 (11) 10(A) , No pain 14:55:09 63 12 98 3.7 148/77(116) NSR 0 (11) 10(A) , No pain 15:00:36 60 17 97 26.4 129/64(116) NSR 0 (11) 9(A) , No pain 15:04:50 66 17 95 0 98/53(73) NSR 0 (11) 9(A) , No pain 15:08:50 68 17 96 8.3 114/60(87) NSR 0 (11) 9(A) , No pain 15:12:56 67 18 96 8.3 103/61(81) NSR 0 (11) 9(A) , No pain 15:16:57 64 18 98 38.5 122/63(107) NSR 0 (11) 10(A) , No pain 15:21:03 64 15 97 33.9 126/67(105) NSR 0 (11) 10(A) , No pain Medications Time Medication Route Dose Verified Delivered Reason Not es Effectiveness by by 14:25:58 0.9% NaCl I.V. 100 Marcelion Marcelino Per physician ml/hr Erika James RN RN 14:26:10 Oxygen etCO2 2 l/min Marcelino Marcelino for low 02 sats Nasal Lorigan Lorjacki cannula RN RN 14:26:19 Heparin Flush added 2 bags Marcelino Marcelino used for Bag to Lorigan Lorigan procedure (1000units/500ml field GODOY RN NS) 14:26:29 Lidocaine 2% added 20ml Marcelino Marcelino for local to vial Lorigan Lorigan anesthetic field GODOY RN 14:26:45 Radial Cocktail added 1 Marcelino Marcelino used for (Verapomil to syringe Lorigan Lorigan procedure 2mg/Nitro field GODOY RN 400mcg/Heparin 1500units) 14:50:29 Versed I.V. 1 mg Marcelino Marcelino for sedation Erika James RN, RN 14:50:37 Fentanyl I.V. 50 mcg Marcelino Marcelino for sedation Lorigan Lorigan RN RN 14:58:41 Versed I.V. 1 mg Marcelino Marcelino for sedation Erika James RN RN 14:58:47 Fentanyl I.V. 50 mcg Marcelino Marcelino for sedation Erika James RN RN 15:00:44 Radial Cocktail I.A. 1 Marcelino Paul for (Verapomil syringe Erika Dangelo MD vasodilation 2mg/Nitro RN 400mcg/Heparin 1500units) 15:09:18 Heparin Bolus I.V. 5,700 Marcelino Marcelino for jimena ified units Erika James anticoagulation with dr WALT dangelo 15:21:54 Plavix P.O. 600 mg Marcelino Marcelino for Erika James antiplatelet RN RN therapy Procedure Log Time Note 14:14:58 Informed consent obtained and on chart 14:15:03 Diagnostic Cath Status : Elective 14:15:22 Marcelino James RN sent for patient. Start room use. 14:15:23 Time tracking: Regular hours (M-F 7:00 - 5:00) 14:15:28 Plan of Care:Hemodynamics will remain stable., Cardiac rhythm will remain stable., Comfort level will be maintained., Respiratory function will remain adequate., Patient/ family verbilizes understanding of procedure., Procedure tolerated without complication., Recovers from procedure without complications.. 14:18:01 Patient received from Pre/Post Procedure Room to CCL 2 Alert and oriented. Tansferred to table in Supine position. 14:18:03 Warm blankets applied, and genesis hugger turned on for patient comfort. 14:18:03 Correct patient and procedure confirmed by team. 14:18:06 ECG and BP/O2 sat monitors applied to patient. 14:20:03 Vital chart was started 14:20:07 Baseline sample Acquired. 14:20:12 Full Disclosure recording started 14:20:34 H&P Date Dictated: 05/13/2018 Within 30 days and on chart., H&P Addendum completed by physician on day of procedure. (MUST COMPLETE FOR ALL OUTPATIENTS). 14:25:58 0.9% NaCl 100 ml/hr I.V. was administered by Marcelino James RN; Per physician; 14:26:10 Oxygen 2 l/min etCO2 Nasal cannula was administered by Marcelino James RN; for low 02 sats; 14:26:19 Heparin Flush Bag (1000units/500ml NS) 2 bags added to field was administered by Marcelino James RN; used for procedure; 14::29 Lidocaine 2% 20ml vial added to field was administered by Marcelino James RN; for local anesthetic; 14::45 Radial Cocktail (Verapomil 2mg/Nitro 400mcg/Heparin 1500units) 1 syringe added to field was administered by Marcelino James RN; used for procedure; 14:29: Pre-procedure instructions explained to patient. 14::23 Pre-op teaching completed and patient verbalized understanding. 14:29:24 Family in waiting room. 14:29: Patient NPO since Midnight. 14:29:28 Is the patient allergic to Iodine/contrast media? No. 14::29 Was the patient premedicated? No 14:29:30 Is patient on blood thinner?No 14:29:31 Patient diabetic? No. 14:29:35 Previous problem with sedation/anesthesia? No ? 14:29:36 Snore? Yes 14:29:37 Sleep apnea? Yes 14:29:38 Deviated septum? No 14:29:39 Opens mouth fully? No 14:29:40 Sticks out tongue? Yes 14:29:42 Airway obstruction? Yes ? 14:29:45 Dentures? No ? 14:29:48 Pre procedure: right dorsailis pedis pulse 2+ Normal; easily identifiable; not easily obliterated 14:29:50 Pre procedure: left dorsailis pedis pulse 2+ Normal; easily identifiable; not easily obliterated 14:29:52 Patient pain scale 0/10 ?. 14:29:58 IV patent on arrival in left forearm with 0.9% NaCl at [facility]. 14:30:01 Lab results completed and on chart. 14:30:07 Right Radial & Right Groin area was prepped with chlora-prep and draped in sterile fashion 14:30:08 Alarms reviewed by RMacey N. 14:30:08 Sharps counted by scrub and verified by R.N. 14:43:58 Physician arrived 14:43:59 --------ALL STOP TIME OUT------ 14:43:59 Final Timeout: patient, procedure, and site verified with staff and physician. All members of the team are in agreement. 14:44:01 Right Radial & Right Groin site verified by team. 14:44:05 Fire Safety Assessment: A--An alcohol-based skin anteseptic being used preoperatively., C--Open oxygen or nitrous oxide is being used., D--An ESU, laser, or fiber-optic light is being used. 14:44:09 Physical assessment completed. ASA score P 2 - A patient with mild systemic disease as per Paul Dangelo MD. 14:44:12 Sedation plan: IV Moderate Sedation Medication:Versed, Fentanyl 14:50:29 Versed 1 mg I.V. was administered by Marcelino James RN; for sedation; 14:50:37 Fentanyl 50 mcg I.V. was administered by Marcelino James RN; for sedation; 14:56:46 Use device set Radial Dx or PCI 14:56:47 ACIST Syringe (87918) opened to sterile field. 14:56:48 Medline Cath Pack ([id number]) opened to sterile field. 14:56:49 Bag Decanter (2002S) opened to sterile field. 14:56:49 DIAGNOSTIC WIRE .035 260cm J wire (363250) opened to sterile field. 14:56:50 ACIST Hand Control (22664) opened to sterile field. 14:56:50 ACIST Manifold (34341) opened to sterile field. 14:56:51 Tegaderm 4 x 4 (1626W) opened to sterile field. 14:56:52 MBrace Wrist Support ([id number]) opened to sterile field. 14:56:54 SHEATH 6FR Slender (801060) opened to sterile field. 14:58:41 Versed 1 mg I.V. was administered by Marcelino James RN; for sedation; 14:58:47 Fentanyl 50 mcg I.V. was administered by Marcelino James RN; for sedation; 14:58:55 Procedure started. 14:59:06 Local anesthetic to right radial artery with Lidocaine 2% by Paul Dangelo MD.INITIAL ACCESS ONLY 15:00:44 Radial Cocktail (Verapomil 2mg/Nitro 400mcg/Heparin 1500units) 1 syringe I.A. was administered by Paul Dangelo MD; for vasodilation; 15:01:11 A 6 Fr Short sheath was inserted into the Right Radial artery 15:01:31 A DIAGNOSTIC [place] 110cm 5 Fr catheter (224443) was advanced over the wire and used for Multi-vessel Angiography. 15:03:03 LV hemodynamics recorded. 15:03:04 LV gram done using ANDERS 15:03:06 Injector settings: Ml/sec: 5, Volume: 15, 15:03:12 EF : 50 % 15:03:56 LCA angiography performed. 15:04:00 Injector settings: Ml/sec: 3, Volume: 6, 15:05:14 RCA angiography performed. 15:05:46 Injector settings: Ml/sec: 3, Volume: 6, 15:05:51 Catheter removed. 15:05:52 Proceeding to intervention. 15:06:06 INFLATOR Merit BasixCompak (MO4620) opened to sterile field. 15:06:06 BMW 300cm [place] 2 J wire (5508630S) opened to sterile field. 15:06:25 GUIDE 6FR XBLAD 3.5 catheter ([id number]) opened to sterile field. 15:06:46 6 Fr xblad 3.5 guide catheter was inserted over the wire 15:06:50 bmw wire advanced. 15:09:18 Heparin Bolus 5,700 units I.V. was administered by Marcelino James RN; for anticoagulation; verified with dr dangelo 15:13:26 Wire advanced across lesion. 15:16:03 Place stent Inflation Number: 1 A INTEGRITY OTW 3.0 X 15 stent ([id number]) was prepped and advanced across the Mid LAD. The stent was deployed at 12 LAURI for 0:10 (min:sec). 15:19:58 Stent catheter was removed intact over wire. 15:19:59 Wire removed. 15:20:00 Guide catheter removed. 15:20:21 TR BAND Standard ([id number]) opened to sterile field. 15:20:28 Sheath removed intact; hemostasis achieved with Mechanical Compression to the Right Radial artery. 15:20:29 Procedure ended.(Physican Out) 15:20:42 Fluoroscopy time 04.80 minutes. 15:20:46 Flurop Dose total: 577 15:20:46 Fluoroscopy dose: 577 mGy 15:20:49 Contrast amount:Isovue 300 74ml. 15:20:50 Sharps counted by scrub and verified by R.N. 15:20:54 TR band inflated with 10cc of air. 15:20:55 Insertion/operative site no bleeding no hematoma. 15:20:59 Post right radial artery:stable 15:21:00 Post Procedure Pulses reassessed and unchanged 15:21:03 Post procedure rhythm: unchanged. 15:21:05 Estimated blood loss: 5 ml 15:21:07 Post procedure instruction explained to patient.Patient verbalizes understanding. 15:21:07 Patient needs reinforcement of post procedure teaching. 15:21:18 Procedure type changed to Cath procedure, Diagnostic procedure, LHC, LHC w/Coronaries, Sedation Charges, Moderate Sedation up to 15 minutes, PCI procedure, Coronary Stent, Coronary Stent Initial 15:21:19 Procedure and supply charges have been captured, reviewed, submitted and are correct. 15:21:23 Procedure Complication : No complications 15:21:25 Vital chart was stopped 15:21:25 See physician's report for complete and final results. 15:21:29 Report given to Pre/Post Procedure Room. 15:21:31 Patient transfered to Pre/Post Procedure Room with Stretcher. 15:21:34 Procedure ended. 15:21:34 Full Disclosure recording stopped 15:21:42 ACC-PCI Only Patient was given prescriptions, or instructed by Paul Dangelo MD to start/continue the following medications upon discharge: Plavix 15:21:44 End room use (Document Last) 15:21:54 Plavix 600 mg P.O. was administered by Marcelino James RN; for antiplatelet therapy; Intervention Summary Intervention Notes Time ActionType Lesion and Equipment Action# Pressure Duration Attributes Used 15:16:03 Place stent Mid LAD INTEGRITY 1 12 00:10 OTW 3.0 X 15 stent ([id number]) Device Usage Item Name Manufacture Quantity Catalog Hospital Part Current Minimal Lot# / Number Charge Number Stock Stock Serial# Code ACIST Acist 1 80745 582894 182128 665663 20 Syringe Outroop Inc. (52584) Systems Inc Medline Medline 1 [id number] 061811 63849 304353 5 Cath Pack ([id number]) Bag Microtek 1 887797 88221 461638 5 DecTwenty Jeans Medical Inc. () DIAGNOSTIC [place] 1 882529 024938 856552 434891 30 WIRE .035 260cm J wire (349035) ACIST Hand Acist 1 17619 759307 510587 395412 5 Control Medical (74727) Systems Inc ACIST Acist 1 26735 312634 803188 071303 5 Manifold Medical (98931) Systems Inc Tegaderm 4 3M 1 1626W 413776 742947 216429 5 x 4 (1626W) MBrace Advanced 1 140-0250-00 935971 50700 886466 5 Wrist Vascular Support Dynamics ([id number]) SHEATH 6FR Terumo 1 [id number] 263498 430598 180289 5 Slender (80-1060) DIAGNOSTIC Terumo 1 40-3153 764881 018387 397840 5 [place] 110cm 5 Fr catheter (303557) INFLATOR Merit 1 [id number] 138609 835624 763295 15 Merit Medical BasixCompak (MK8459) BMW 300cm [place] 1 [id number] 605935 493583 665323 5 [place] 2 Vascular J wire (1170225S) GUIDE 6FR Cardinal 1 11496813 948858 118744 481687 10 XBLAD 3.5 Health catheter (45186540) INTEGRITY Medtronic 1 [id number] 219432 776892 583584 3 [id number] OTW 3.0 X 15 stent ([id number]) TR BAND Terumo 1 [id number] 252141 136903 976906 40 Standard ([id number]) Signature Audit [place] Stage Time Signature Unsigned Intra-Procedure 06/03/2018 Zohreh Fox 3:24:56 PM RT(R) Signatures Monitor : Zohreh Fox RT Signature : Date : Time : [facility] [address] [place] [address]
[~2018-06-03 11:37] MED LIST changes: +BAYER CHEWABLE81 MG PO; +PLAVIX75 MG PO
[2018-06-03] MEDS ORDERED: PRAVACHOL20 MG PO (11:59)
[2018-06-03 12:09] VITALS: BP 139/61; Ht 160 cm; Wt 57.3 kg
[2018-06-03 12:32] LABS: ANION GAP 16.5 mmol/L (8-16); CALCIUM 8.5 mg/dL (8.5-10.1); CARBON DIOXIDE 23.8 mmol/L (21.0-32.0); CREATININE - SERUM 0.8 mg/dL (0.6-1.3); POTASSIUM - SERUM 4.3 mmol/L (3.5-5.1)
[2018-06-03 12:38] LABS: BASOPHILS 0.5 % (0-2); EOSINOPHILS 2.4 % (0-7); HEMATOCRIT 28.3 % (36.0-48.0); HEMOGLOBIN 8.8 g/dL (12-16); IMMATURE GRANULOCYTES 0.2 % (0-5); LYMPHOCYTES 27.3 % (15-50); MCH 25.5 pg (26.0-34.0); MCHC 31.1 g/dL (31.0-37.0); MEAN PLATELET VOLUME 9.1 fL (7.4-10.4); MONOCYTES 12.6 % (2-11); PLATELET COUNT 364 10x3/uL (130-400); RBC 3.45 10x6/uL (4.00-5.40); RDW 13.7 % (11.5-14.5); WBC 5.5 10x3/uL (4.8-10.8)
[2018-06-03] MEDS ORDERED: PLAVIX75 MG PO (15:45)
--- NOTE | 2018-06-03 15:50 | NUR ---
PATIENT AWAKE, EATING TURKEY SANDWICH AND DRINKING COKE. NO N/V. RIGHT TR BAND IN PLACE, NO S/S OF BLEEDING OR HEMATOMA. NO C/O PAIN, NUMBNESS, OR TINGLING.
--- NOTE | 2018-06-03 16:20 | NUR ---
PATIENT AWAKE, VSS ON ROOM AIR. RIGHT TR BAND IN PLACE, NO S/S OF BLEEDING OR HEMATOMA. NO C/O PAIN, NUMBNESS, OR TINGLING. NO N/V.
--- NOTE | 2018-06-03 16:50 | NUR ---
PATIENT AWAKE, VSS ON ROOM AIR. RIGHT TR BAND IN PLACE, NO S/S OF BLEEDING OR HEMATOMA. NO C/O PAIN, NUMBNESS, OR TINGLING.
--- NOTE | 2018-06-03 17:20 | NUR ---
PATIENT AWAKE, VSS ON ROOM AIR. RIGHT TR BAND IN PLACE, NO S/S OF BLEEDING OR HEMATOMA. NO C/O PAIN, NUMBNESS, OR TINGLING. NO N/V. AT BEDSIDE.
--- NOTE | 2018-06-03 17:50 | NUR ---
PATIENT C/O SLIGHT DISCOMFORT IN ARM AT IV SITE, NO SIGNS OF INFILTRATION OR INFLAMMATION NOTED. RIGHT TR BAND IN PLACE, NO S/S OF BLEEDING OR HEMATOMA. VSS ON ROOM AIR.
--- NOTE | 2018-06-03 18:20 | NUR ---
BEGIN AIR REMOVAL PROTOCOL FOR TR BAND, NO S/S OF BLEEDING OR HEMATOMA. PATIENT AWAKE, VSS ON ROOM AIR. FAMILY PRESENT AT BEDSIDE. ACETAMINOPHEN GIVEN PRESCRIBED FOR SLIGHT DISCOMFORT IN ARM. IV REMOVED R/T PATIENT STATING THAT IT WAS "UNCOMFORTABLE". NO S/S OF INFILTRATION OR INFLAMMATION.
--- NOTE | 2018-06-03 18:50 | NUR ---
FOLLOWING AIR REMOVAL PROTOCOL, SMALL AMOUNT OF BLEEDING NOTED, 3CC OF AIR REPLACED WITH NO FURTHER S/S OF BLEEDING OR HEMATOMA. NO C/O PAIN, NUMBNESS, OR TINGLING. VSS ON ROOM AIR.
--- NOTE | 2018-06-03 19:20 | NUR ---
3CC OF AIR REMOVED FROM RIGHT TR BAND, NO S/S OF BLEEDING OR HEMATOMA. WILL CONTINUE TO MONITOR. VSS ON ROOM AIR.
--- NOTE | 2018-06-03 19:30 | NUR ---
REMAINING AIR REMOVED FROM TR BAND, NO S/S OF BLEEDING OR HEMATOMA. EDUCATION GIVEN TO PATIENT AND FAMILY REGARDING DISCHARGE INSTRUCTIONS AND MEDICATIONS, PATIENT VERBALIZES UNDERSTANDING. VSS ON ROOM AIR. NO C/O PAIN, NUMBNESS, OR TINGLING.
--- NOTE | 2018-06-03 19:50 | NUR ---
PATIENT TRANSPORTED VIA WHEELCHAIR TO CAR WITH FAMILY, ALL BELONGINGS WITH PATIENT. RIGHT RADIAL DRESSING IS CDI, NO S/S OF BLEEDING OR HEMATOMA.
== END 2018-06-03 19:50 ==
LOC: D.CATH 11:37
PROVIDERS: ATTEND Internal Medicine Cardiovascular Disease
DX: I25.110 Atherosclerotic heart disease of native coronary artery with unstable angina pectoris (principal)

== ENCOUNTER → 2019-01-14 09:05 | Outpatient (CLI) | payer MEDICARE, BC ==
[2018-06-03 12:09] VITALS: BMI 22.3
[~2019-01-14 09:05] MED LIST changes: +PRAVACHOL20 MG PO
== END | disposition home or self-care (01) ==
LOC: D.US 09:05
PROVIDERS: ATTEND Internal Medicine Cardiovascular Disease
DX: R42 Dizziness and giddiness (principal)

== ENCOUNTER → 2019-08-25 14:01 | Outpatient (CLI) | payer MEDICARE, BC ==
[2018-06-03 12:09] VITALS: BMI 22.3
[~2019-08-25 14:01] MED LIST changes: +COREG6.25 MG PO; +HYDROCODON-ACE1 EAC7 PO; +TRAZODONE HCL150 MG PO
== END | disposition home or self-care (01) ==
LOC: D.LABREF 14:01
PROVIDERS: ATTEND Surgery
DX: Z11.59 Encounter for screening for other viral diseases (principal)

== ENCOUNTER 2019-08-27 05:15 | Day surgery (SDC) | payer MEDICARE, BC ==
[2019-08-25 14:41] LABS: BASOPHILS 0.7 % (0-2); EOSINOPHILS 2.8 % (0-7); HEMATOCRIT 35.4 % (36.0-48.0); HEMOGLOBIN 11.6 g/dL (12-16); IMMATURE GRANULOCYTES 0.4 % (0-5); LYMPHOCYTES 34.4 % (15-50); MCH 31.9 pg (26.0-34.0); MCHC 32.8 g/dL (31.0-37.0); MCV 97.3 fL (80.0-100.0); MEAN PLATELET VOLUME 8.8 fL (7.4-10.4); MONOCYTES 10.7 % (2-11); PLATELET COUNT 294 10x3/uL (130-400); RBC 3.64 10x6/uL (4.00-5.40); WBC 5.4 10x3/uL (4.8-10.8)
[2019-08-25 15:27] LABS: ANION GAP 9.7 mmol/L (8-16); CALCIUM 8.3 mg/dL (8.5-10.1); CARBON DIOXIDE 27.5 mmol/L (21.0-32.0); CREATININE - SERUM 0.8 mg/dL (0.6-1.3); POTASSIUM - SERUM 4.2 mmol/L (3.5-5.1)
[~2019-08-27] VITALS: Ht 160 cm; Wt 53.5 kg
[~2019-08-27 05:15] MED LIST changes: -HYDROCODON-ACE1 EAC7 PO; -TRAZODONE HCL150 MG PO
[2019-08-27] MEDS ORDERED: TRAZODONE HCL150 MG PO (05:52)
[2019-08-27 05:53] VITALS: BP 153/68; Ht 160 cm; Wt 53.5 kg
[2019-08-27] MEDS ORDERED: HYDROCODON-ACE1 EAC7 PO (08:38)
--- NOTE | 2019-08-27 10:06 | NUR ---
0945-AMBULATED TO RESTROOM WITH SLOW STEADY GAIT. ABLE TO VOID WITHOUT COMPLICATIONS.VSS.REPORTS PAIN 2/10 TO SURGICAL SITE. DRESSING CDI.NO DISTRESS, NO N/V. CL IN EASY REACH. SON AT BEDSIDE.
--- NOTE | 2019-08-27 10:08 | NUR ---
1005-REMOVED IV WITH CATH INTACT,DISPOSED INTO SHARPS,COVERED WITH GUAZE,SECURED WITH MEDIPORE TAPE. VERY PLEASANT. NO DISTRESS. NO N/V. DRESSING TO LLQ CDI.
--- NOTE | 2019-08-27 10:24 | NUR ---
1020-REVIEWED POST OPERATIVE INSTRUCTIONS AND FOLLOW UP APPOINTMENT.VERBALIZED UNDERSTANDING.
--- NOTE | 2019-08-27 10:25 | NUR ---
1024-DISCHARGE CRITERIA MET. ESCORTED OUT WITH SON AWAITING TO DRIVE HOME.
--- NOTE | 2019-08-27 13:58 | OP ---
PATIENT NAME: SEEMA BURGER MEDICAL RECORD: [id number] :39 LOCATION:[facility] ADMISSION DATE: SURGEON: JOSESITO KILGORE MD DATE OF OPERATION: 08/27/2019 PREOPERATIVE DIAGNOSES: 1. Left inguinal hernia. 2. Coronary artery disease. 3. Hypertension. POSTOPERATIVE DIAGNOSES: 1. Left inguinal hernia. 2. Coronary artery disease. 3. Hypertension. PROCEDURE: Left inguinal hernia repair with medium PHS mesh. SURGEON: Josesito Kilgore MD REPORT OF PROCEDURE: The patient's left groin was prepped and draped in sterile fashion. An oblique incision was made above the inguinal ligament. Electrocautery was used to dissect through the subcutaneous tissue down to the external oblique fascia. This fascia was opened up to the external ring using electrocautery. The patient's round ligament was elevated. We ligated distally and proximally with 3-0 silk ties. The patient had 2 bundles of nerve tissue, which were high ligated. The floor of the inguinal canal was very loose and on the inferior aspect of this near the inguinal ligament, there was a protrusion of fatty tissue consistent with a direct hernia defect. The inguinal floor was opened up and the preperitoneal space of Retzius was freed up in all directions. A medium PHS mesh was inserted and sutured down on all 4 sides using multiple interrupted 0 Vicryls. This mesh appeared to lie gently across the hernia defect. We irrigated out the wound with normal saline and assured there was no sign of any bleeding. The external oblique fascia was then closed with running 2-0 Vicryl, Sarai's was closed with interrupted 3-0 Vicryls and the skin was closed with running subcutaneous 5-0 Monocryl. A 10 mL of 0.25% Marcaine with epinephrine was infused into the surrounding tissues and the wound was dressed appropriately. COMPLICATIONS: None. CONDITION: Stable. ANESTHESIA: General endotracheal and local. BLOOD LOSS: Minimal. TRANSINT:[id number] Voice Confirmation ID: [id number] DOCUMENT ID: [id number] OPERATIVE REPORT [id number] BURGERSEEMA JOSESITO KILGORE MD at 1358 CC: JONA MILLER [phone] DICTATION DATE: 08/27/19 0841 FOREST OFFICER: 08/27/19 1017 [facility] 08/27/19 [facility] [address] [place] [address]
== END 2019-08-27 10:24 | disposition home or self-care (01) ==
LOC: D.OPS 05:15 → D.PAN 08:30 → D.OPS 10:24
PROVIDERS: ATTEND Surgery
DX: K40.90 Unilateral inguinal hernia, without obstruction or gangrene, not specified as recurrent (principal); I25.10 Atherosclerotic heart disease of native coronary artery without angina pectoris; I10 Essential (primary) hypertension

== ENCOUNTER → 2020-01-25 09:05 | Outpatient (CLI) | payer MEDICARE, BC ==
[2019-08-27 05:53] VITALS: BMI 20.9
[~2020-01-25 09:05] MED LIST changes: +HYDROCODON-ACE1 EAC7 PO; +TRAZODONE HCL150 MG PO
== END | disposition home or self-care (01) ==
LOC: D.HCCARDIO 09:05
PROVIDERS: ATTEND Internal Medicine Cardiovascular Disease
DX: I25.10 Atherosclerotic heart disease of native coronary artery without angina pectoris (principal)

== ENCOUNTER → 2020-08-03 12:10 | Outpatient (CLI) | payer MEDICARE, BC ==
[2020-02-08 11:34] VITALS: BMI 22.4
[~2020-08-03 12:10] MED LIST changes: +PROBIOTIC1 EAC1 PO; +VITAMIN B-122500 MCG PO; +VITAMIN D31250 MCG PO
== END | disposition home or self-care (01) ==
LOC: D.HCCECHO 12:10
PROVIDERS: ATTEND Internal Medicine Cardiovascular Disease
DX: R06.02 Shortness of breath (principal)

== ENCOUNTER 2020-10-04 13:06 | Emergency (ER) | payer MEDICARE, BC ==
[~2020-10-04] VITALS: Ht 160 cm; Wt 57.3 kg
[2020-10-04 13:35] VITALS: BP 137/66; Ht 160 cm; Wt 57.3 kg
== END 2020-10-04 16:13 | disposition home or self-care (01) ==
LOC: D.ER 13:06
DX: S16.1XXA Strain of muscle, fascia and tendon at neck level, initial encounter (principal); S09.90XA Unspecified injury of head, initial encounter; S70.01XA Contusion of right hip, initial encounter; S80.01XA Contusion of right knee, initial encounter; S20.211A Contusion of right front wall of thorax, initial encounter; W18.30XA Fall on same level, unspecified, initial encounter; Y93.9 Activity, unspecified; Y92.9 Unspecified place or not applicable; I10 Essential (primary) hypertension; E78.5 Hyperlipidemia, unspecified